=== PATIENT | female | born 1950 | race Caucasian/White ===

== ENCOUNTER 2020-07-09 18:28 | Inpatient (IN) ==
[2020-07-09] MEDS ORDERED: 0.9 % Sodium Chloride 1,000 ML IVC ONE (18:48)
[2020-07-09] MEDS ORDERED: cefTRIAXone 1,000 MG in Water for inj. (sterile) 10 ML IVP ONE (18:48)
[2020-07-09] MEDS ORDERED: Azithromycin 500 MG in 0.9 % Sodium Chloride 250 ML IVPB ONE (18:48)
[2020-07-09] MEDS ORDERED: Isovue-370 500 ML BOTTLE IVP ONE (19:12)
[2020-07-09 19:13] LABS: Basophils % 0.3 %; Eosinophils % 0.1 %; Hematocrit 39.1 % (35.3-44.9); Immature Granulocytes % 0.7 % (0-4); Lymphocytes # 0.7 K/mcL (0.6-4.6); Lymphocytes % 5.4 %; Mean Corpuscular HGB Conc 33.2 g/dL (31.6-35.5); Mean Corpuscular Hemoglobin 31.1 pg (28.0-33.3); Mean Corpuscular Volume 93.5 fL (83.0-100.0); Monocytes # 1.1 K/mcL (0.0-1.3); Monocytes % 9.3 %; Neutrophils # 10.3 K/mcL (1.6-8.9); Platelet Count 198 K/mcL (140-400); Red Blood Count 4.18 M/mcL (3.82-4.97); Red Cell Distribution Width 12.7 % (11.5-14.5); Segmented Neutrophils % 84.2 %; White Blood Count 12.3 K/mcL (4.3-11.1)
[2020-07-09 19:20] LABS: INR 1.2; Prothrombin Time 13.6 Seconds (9.4-12.1)
[2020-07-09 19:23] LABS: Activated Partial Thrombo Time 27.8 Seconds (26.0-36.0)
[2020-07-09 19:40] LABS: Alanine Aminotransferase 18 Units/L (7-52); Albumin/Globulin Ratio 1.2 (1.1-2.2); Alkaline Phosphatase 85 Units/L (34-104); Aspartate Amino Transferase 19 Units/L (13-39); BUN/Creatinine Ratio 23 (6-26); Bilirubin,Direct 0.1 mg/dL (0.0-0.2); Bilirubin,Indirect 0.4 mg/dL (0.0-1.0); Bilirubin,Total 0.5 mg/dL (0.3-1.0); Blood Urea Nitrogen 17 mg/dL (8-23); Calcium 9.9 mg/dL (8.6-10.3); Carbon Dioxide 22 mEq/L (23-29); Chloride 98 mEq/L (98-107); Globulin 3.3 g/dL (2.4-3.5); Glucose 141 mg/dL (70-105); Osmolality,Calculated 276 (280-300); Potassium 3.9 mEq/L (3.5-5.1); Sodium 131 mEq/L (136-145); Total Protein 7.3 g/dL (6.4-8.9); Troponin I 0.03 ng/mL (< 0.04); eGFR For African Americans > 60 (> 60); eGFR For Non-African Americans > 60 (> 60)
[2020-07-09 20:44] LABS: Bilirubin,Urine Negative (Negative); Blood,Urine Trace (Negative); Clarity,Urine Clear (Clear); Color,Urine Light-Yellow (Yellow); Glucose,Urine (UA) Normal (Normal); Ketones,Urine Negative (Negative); Leukocyte Esterase,Urine Large (Negative); Nitrite,Urine Negative (Negative); PH,Urine 6.5 pH Units (5.0-8.0); Protein,Urine 30 mg/dL (Neg-Trace); RBC,Urine 0-3 per hpf (0-3); Specific Gravity,Urine 1.019 (1.010-1.025); Squamous Epithelial Cell,Urine Few per hpf (None-Few); Urobilinogen,Urine Normal (Normal); WBC,Urine 50-100 per hpf (0-3)
[2020-07-09 20:45] LABS: Adenovirus Not Detected (Not Detect); Bordetella Pertussis Not Detected (Not Detect); Chlamydophila pneumoniae Not Detected (Not Detect); Coronavirus 229E Not Detected (Not Detect); Coronavirus HKU1 Not Detected (Not Detect); Coronavirus NL63 Not Detected (Not Detect); Coronavirus OC43 Not Detected (Not Detect); Human Metapneumovirus Not Detected (Not Detect); Human Rhinovirus/Enterovirus Not Detected (Not Detect); Influenza A Subtype 2009 H1 Not Detected (Not Detect); Influenza B Not Detected (Not Detect); Mycoplasma pneumoniae Not Detected (Not Detect); Parainfluenza Virus 1 Not Detected (Not Detect); Parainfluenza Virus 2 Not Detected (Not Detect); Parainfluenza Virus 3 Not Detected (Not Detect); Parainfluenza Virus 4 Not Detected (Not Detect); Respiratory Syncytial Virus Not Detected (Not Detect); SARS-CoV-2 Not Detected (Not Detect)
[2020-07-09] MEDS ORDERED: *HR* LORazepam 2 MG/ML VIAL IVP ONE (21:00)
[2020-07-09] MEDS ORDERED: Naloxone 0.4 MG/ML INJ IVP PRN (22:02)
[2020-07-09] MEDS ORDERED: Melatonin 3 MG TABLET PO PRN (22:02)
[2020-07-09] MEDS ORDERED: Acetaminophen 325 MG TABLET PO PRN (22:02)
[2020-07-09] MEDS ORDERED: Ondansetron 4 MG/2 ML VIAL IVP PRN (22:02)
[2020-07-09] MEDS ORDERED: *HR* LORazepam 0.5 MG TABLET PO PRN (22:05)
[2020-07-09] MEDS ORDERED: Ringers Solution, Lactated 1,000 ML IVC SCH (22:15)
[2020-07-10] MEDS ORDERED: D5% in Water 1,000 ML IVC PRN (00:14)
[2020-07-10] MEDS ORDERED: Dextrose Gel 15 GM/37.5 ML TUBE PO PRN ×2 (00:14)
[2020-07-10] MEDS ORDERED: *HR* Dextrose 50 % in Water (Vial) 50 ML VIAL IVP PRN (00:14)
[2020-07-10 02:56] LABS: Basophils % 0.2 %; Hematocrit 36.5 % (35.3-44.9); Hemoglobin 12.2 g/dL (11.5-15.4); Lymphocytes # 0.7 K/mcL (0.6-4.6); Lymphocytes % 4.1 %; Mean Corpuscular HGB Conc 33.4 g/dL (31.6-35.5); Mean Corpuscular Hemoglobin 31.3 pg (28.0-33.3); Mean Corpuscular Volume 93.6 fL (83.0-100.0); Mean Platelet Volume 9.9 fL (9.4-12.4); Monocytes # 1.9 K/mcL (0.0-1.3); Monocytes % 10.8 %; Neutrophils # 14.4 K/mcL (1.6-8.9); Platelet Count 194 K/mcL (140-400); Red Cell Distribution Width 12.9 % (11.5-14.5); Segmented Neutrophils % 83.9 %; White Blood Count 17.2 K/mcL (4.3-11.1)
[2020-07-10 03:17] LABS: BUN/Creatinine Ratio 22 (6-26); Blood Urea Nitrogen 17 mg/dL (8-23); Calcium 8.9 mg/dL (8.6-10.3); Carbon Dioxide 21 mEq/L (23-29); Chloride 105 mEq/L (98-107); Chol/HDL Ratio 3.9 (0-4.9); Cholesterol 128 mg/dL (< 200); Glucose 182 mg/dL (70-105); HDL Cholesterol 33 mg/dL (40-59); LDL Cholesterol,Calculated 64 mg/dL (< 100); Osmolality,Calculated 286 (280-300); Phosphorous 2.3 mg/dL (2.7-4.5); Potassium 3.4 mEq/L (3.5-5.1); Sodium 135 mEq/L (136-145); Triglycerides 156 mg/dL (< 150); eGFR For African Americans > 60 (> 60); eGFR For Non-African Americans > 60 (> 60)
[2020-07-10 04:08] LABS: Platelet Estimate Normal (Normal)
[2020-07-10 04:09] LABS: Toxic Vacuolation Present (Not Present)
[2020-07-10] MEDS: *HR* Enoxaparin 40 MG/0.4 ML SYRINGE SQ SCH (06:04)
[2020-07-10] MEDS ORDERED: Ringers Solution, Lactated 1,000 ML IVC SCH (07:50)
[2020-07-10] MEDS: cefTRIAXone 1,000 MG in Water for inj. (sterile) 10 ML IVP SCH (10:03)
[2020-07-10] MEDS: Aspirin Enteric Coated 81 MG Tablet PO SCH (10:04)
[2020-07-10] MEDS: Insulin LISPRO 300 UNITS/3 ML VIAL SUBQ SCH ×4 (10:09→20:38)
[2020-07-10] MEDS: amLODIPine 5 MG TABLET PO SCH (10:09)
[2020-07-10] MEDS: Insulin DETEMIR 100 UNIT/ML X5UNITS SUBQ SCH (20:25)
[2020-07-11] MEDS: *HR* Enoxaparin 40 MG/0.4 ML SYRINGE SQ SCH (05:20)
[2020-07-11 06:28] LABS: BUN/Creatinine Ratio 18 (6-26); Blood Urea Nitrogen 12 mg/dL (8-23); Calcium 8.8 mg/dL (8.6-10.3); Carbon Dioxide 22 mEq/L (23-29); Chloride 105 mEq/L (98-107); Glucose 146 mg/dL (70-105); Magnesium 2.1 mg/dL (1.6-2.6); Osmolality,Calculated 286 (280-300); Potassium 4.1 mEq/L (3.5-5.1); Sodium 137 mEq/L (136-145); eGFR For African Americans > 60 (> 60); eGFR For Non-African Americans > 60 (> 60)
[2020-07-11 07:19] LABS: Basophils # 0.1 K/mcL (0.0-0.2); Basophils % 0.4 %; Eosinophils # 0.1 K/mcL (0.0-0.6); Eosinophils % 0.4 %; Hematocrit 34.5 % (35.3-44.9); Hemoglobin 11.5 g/dL (11.5-15.4); Immature Granulocytes % 0.7 % (0-4); Lymphocytes # 1.3 K/mcL (0.6-4.6); Lymphocytes % 10.8 %; Mean Corpuscular HGB Conc 33.3 g/dL (31.6-35.5); Mean Corpuscular Hemoglobin 31.5 pg (28.0-33.3); Mean Corpuscular Volume 94.5 fL (83.0-100.0); Mean Platelet Volume 10.5 fL (9.4-12.4); Monocytes # 1.6 K/mcL (0.0-1.3); Monocytes % 13.8 %; Neutrophils # 8.8 K/mcL (1.6-8.9); Platelet Count 166 K/mcL (140-400); Red Blood Count 3.65 M/mcL (3.82-4.97); Red Cell Distribution Width 13.1 % (11.5-14.5); Segmented Neutrophils % 73.9 %; White Blood Count 11.9 K/mcL (4.3-11.1)
[2020-07-11 07:30] LABS: Acinetobacter baumannii by PCR Not Detected (Not Detect); Enterococcus by PCR Not Detected (Not Detect); Staphylococcus aureus by PCR Not Detected (Not Detect); Staphylococcus by PCR Not Detected (Not Detect); Streptococcus agalactiae(B)PCR Not Detected (Not Detect); Streptococcus by PCR Not Detected (Not Detect); Streptococcus pneumoniae PCR Not Detected (Not Detect); Streptococcus pyogenes (A) PCR Not Detected (Not Detect)
[2020-07-11 07:31] LABS: Candida albicans by PCR Not Detected (Not Detect); Candida glabrata by PCR Not Detected (Not Detect); Candida krusei by PCR Not Detected (Not Detect); Candida parapsilosis by PCR Not Detected (Not Detect); Candida tropicalis by PCR Not Detected (Not Detect); Enterobacter cloacae Cmplx PCR Not Detected (Not Detect); Escherichia coli by PCR DETECTED (Not Detect); Klebsiella oxytoca by PCR Not Detected (Not Detect); Klebsiella pneumoniae by PCR Not Detected (Not Detect); Proteus by PCR Not Detected (Not Detect); Pseudomonas aeruginosa by PCR Not Detected (Not Detect); Serratia marcescens by PCR Not Detected (Not Detect)
[2020-07-11] MEDS: Insulin LISPRO 300 UNITS/3 ML VIAL SUBQ SCH ×4 (08:21→22:07)
[2020-07-11] MEDS: Cholecalciferol (D-3) 1,000 UNIT (25MCG) TABLET PO SCH (09:33)
[2020-07-11] MEDS: amLODIPine 5 MG TABLET PO SCH (09:33)
[2020-07-11] MEDS: Aspirin Enteric Coated 81 MG Tablet PO SCH (09:33)
[2020-07-11] MEDS: Venlafaxine XR (24 HR) 150 MG CAP.ER.24H PO SCH (09:33)
[2020-07-11] MEDS: cefTRIAXone 1,000 MG in Water for inj. (sterile) 10 ML IVP SCH (09:34)
[2020-07-11] MEDS: Insulin DETEMIR 100 UNIT/ML X5UNITS SUBQ SCH (22:07)
[2020-07-12] MEDS: *HR* Enoxaparin 40 MG/0.4 ML SYRINGE SQ SCH (05:16)
[2020-07-12 05:46] LABS: Basophils % 0.5 %; Eosinophils # 0.1 K/mcL (0.0-0.6); Eosinophils % 1.3 %; Hematocrit 37.1 % (35.3-44.9); Hemoglobin 12.3 g/dL (11.5-15.4); Immature Granulocytes % 0.8 % (0-4); Lymphocytes # 1.2 K/mcL (0.6-4.6); Mean Corpuscular HGB Conc 33.2 g/dL (31.6-35.5); Mean Corpuscular Hemoglobin 31.5 pg (28.0-33.3); Mean Corpuscular Volume 94.9 fL (83.0-100.0); Mean Platelet Volume 9.6 fL (9.4-12.4); Neutrophils # 5.3 K/mcL (1.6-8.9); Platelet Count 233 K/mcL (140-400); Red Blood Count 3.91 M/mcL (3.82-4.97); Segmented Neutrophils % 68.4 %; White Blood Count 7.7 K/mcL (4.3-11.1)
[2020-07-12 07:22] VITALS: BP 139/76
[2020-07-12] MEDS: Cholecalciferol (D-3) 1,000 UNIT (25MCG) TABLET PO SCH (08:21)
[2020-07-12] MEDS: Venlafaxine XR (24 HR) 150 MG CAP.ER.24H PO SCH (08:21)
[2020-07-12] MEDS: Aspirin Enteric Coated 81 MG Tablet PO SCH (08:22)
[2020-07-12] MEDS: amLODIPine 5 MG TABLET PO SCH (08:22)
[2020-07-12] MEDS: Insulin LISPRO 300 UNITS/3 ML VIAL SUBQ SCH (08:28)
[2020-07-12] MEDS ORDERED: Cefdinir 300 MG CAPSULE PO SCH (09:00)
== END 2020-07-12 11:07 | disposition home or self-care (01) | DRG 872 ==
LOC: EMEROOARM 18:28 → 3ANU 18:28 → SUATTDRO 07-11 09:07
PROVIDERS: ADMIT Internal Medicine; ATTEND Internal Medicine

== ENCOUNTER 2020-09-11 08:17 | Observation (INO) ==
[2020-09-11] MEDS ORDERED: Isovue-370 500 ML BOTTLE IVP ONE (08:35)
[2020-09-11 09:12] LABS: Basophils # 0.1 K/mcL (0.0-0.2); Basophils % 1.1 %; Eosinophils # 0.1 K/mcL (0.0-0.6); Eosinophils % 1.9 %; Hemoglobin 14.6 g/dL (11.5-15.4); Immature Granulocytes % 0.2 % (0-4); Lymphocytes # 1.3 K/mcL (0.6-4.6); Lymphocytes % 27.5 %; Mean Corpuscular HGB Conc 33.2 g/dL (31.6-35.5); Mean Corpuscular Hemoglobin 31.1 pg (28.0-33.3); Mean Corpuscular Volume 93.6 fL (83.0-100.0); Mean Platelet Volume 9.4 fL (9.4-12.4); Monocytes # 0.6 K/mcL (0.0-1.3); Monocytes % 12.3 %; Neutrophils # 2.7 K/mcL (1.6-8.9); Platelet Count 301 K/mcL (140-400); Red Cell Distribution Width 13.3 % (11.5-14.5); White Blood Count 4.7 K/mcL (4.3-11.1)
[2020-09-11 09:20] LABS: INR 0.9; Prothrombin Time 10.5 Seconds (9.4-12.1)
[2020-09-11 09:23] LABS: Activated Partial Thrombo Time 32.9 Seconds (26.0-36.0)
[2020-09-11 09:34] LABS: Alanine Aminotransferase 15 Units/L (7-52); Albumin 4.8 g/dL (3.5-5.7); Albumin/Globulin Ratio 1.6 (1.1-2.2); Alkaline Phosphatase 81 Units/L (34-104); Aspartate Amino Transferase 17 Units/L (13-39); BUN/Creatinine Ratio 25 (6-26); Bilirubin,Total 0.4 mg/dL (0.3-1.0); Blood Urea Nitrogen 17 mg/dL (8-23); Calcium 9.9 mg/dL (8.6-10.3); Carbon Dioxide 24 mEq/L (23-29); Chloride 102 mEq/L (98-107); Creatine Kinase 146 Units/L (30-223); Glucose 129 mg/dL (70-105); Lipase 33 Units/L (11-82); Magnesium 2.2 mg/dL (1.6-2.6); Osmolality,Calculated 291 (280-300); Sodium 139 mEq/L (136-145); Total Protein 7.8 g/dL (6.4-8.9); eGFR For African Americans > 60 (> 60); eGFR For Non-African Americans > 60 (> 60)
[2020-09-11 09:46] LABS: Thyroid Stimulating Hormone 1.167 mcIU/mL (0.340-5.600)
[2020-09-11 10:03] LABS: Bilirubin,Urine Negative (Negative); Blood,Urine Negative (Negative); Clarity,Urine Clear (Clear); Color,Urine Colorless (Yellow); Glucose,Urine (UA) Normal (Normal); Ketones,Urine Negative (Negative); Leukocyte Esterase,Urine Negative (Negative); Nitrite,Urine Negative (Negative); Protein,Urine Negative (Neg-Trace); Specific Gravity,Urine 1.009 (1.010-1.025); Urobilinogen,Urine Normal (Normal)
[2020-09-11 10:15] LABS: Troponin I < 0.03 ng/mL (< 0.04)
[2020-09-11] MEDS ORDERED: Ondansetron ODT 4 MG TAB.RAPDIS SL PRN (11:19)
[2020-09-11] MEDS ORDERED: Acetaminophen 325 MG TABLET PO PRN (11:19)
[2020-09-11] MEDS ORDERED: Dextrose Gel 15 GM/37.5 ML TUBE PO PRN ×2 (11:26)
[2020-09-11] MEDS ORDERED: *HR* Dextrose 50 % in Water (Vial) 50 ML VIAL IVP PRN (11:26)
[2020-09-11] MEDS ORDERED: D5% in Water 1,000 ML IVC PRN (11:26)
[2020-09-11] MEDS ORDERED: Ringers Solution, Lactated 1,000 ML IVC ONE (11:32)
[2020-09-11 12:07] LABS: Chol/HDL Ratio 3.5 (0-4.9)
[2020-09-11] MEDS: Insulin LISPRO 300 UNITS/3 ML VIAL SUBQ SCH ×2 (12:10→16:03)
[2020-09-11 14:03] VITALS: BP 160/92
[2020-09-11] MEDS ORDERED: Insulin LISPRO 300 UNITS/3 ML VIAL SUBQ SCH (21:00)
[2020-09-14 14:48] LABS: Estimated Average Glucose 131 mg/dl; Hemoglobin A1C 6.2 %
== END 2020-09-11 18:50 | disposition home or self-care (01) ==
LOC: 3BNU 08:17 → EMEROOARM 08:17 → 3BNU 12:41
PROVIDERS: ADMIT Internal Medicine; ATTEND Internal Medicine